=== PATIENT | female | born 1995 | race African-American/Black ===

== ENCOUNTER 2020-02-19 11:42 | Inpatient (IN) ==
[2020-02-19] MEDS ORDERED: ONDANSETRON 4 MG/2 ML VIAL IV PRN (15:33)
[2020-02-19] MEDS: LABETALOL 100 MG TABLET PO SCH (21:34)
[2020-02-20] MEDS ORDERED: LACTATED RINGERS 1,000 ML IV SCH ×2 (06:00→18:30)
[2020-02-20 06:18] LABS: Basophils % 0.3 % (0.0-0.8); Eosinophils % 0.5 % (0.00-10.9); Hematocrit 38.4 VOL% (35.7-47.0); Hemoglobin 12.9 GM/DL (12.0-16.0); Immature Granulocytes % 0.5 %; Immature Granulocytes Absolute 0.04 #; Lymphocytes # 1.9 10*3/uL (1.4-4.0); Lymphocytes % 25.9 % (21.3-54.2); Mean Corpuscular HGB Conc 33.6 GM/DL (32-36); Mean Corpuscular Volume 96.5 FL (87-102); Mean Platelet Volume 10.8 FL (9.6-12.0); Monocytes % 7.7 % (1.7-12.7); Neutrophils % 65.1 % (38.7-73.9); Platelet Count 161 T/CUMM (130-400); Red Blood Count 3.98 MC/CUMM (3.8-5.5); Red Cell Distribution Width 13.1 % (9.3-17.3); White Blood Count 7.4 T/CUMM (4-12)
[2020-02-20 06:34] LABS: INR 0.9; PT Patient Result 9.5 SECS (9.8-11.9); Partial Thromboplastin Time 28.9 SECS (23.9-33.8)
[2020-02-20 06:52] LABS: Albumin 2.7 G/DL (3.4-5.0); Bilirubin,Total 0.8 MG/DL (0.2-1.0); Calcium 8.8 MG/DL (8.5-10.1); Osmolality,Calculated 271.7 MOS/KG (273-304); Total Protein 6.4 G/DL (6.4-8.3); Uric Acid 4.2 MG/DL (2.6-6.0)
[2020-02-20] MEDS: LABETALOL 100 MG TABLET PO SCH (09:39)
[2020-02-20] MEDS ORDERED: FAMOTIDINE 20 MG/2 ML VIAL IV ONE (10:05)
[2020-02-20] MEDS ORDERED: ceFAZolin 2,000 MG in PREMIX 1 EACH IV ONE (10:05)
[2020-02-20] MEDS ORDERED: CITRIC ACID/SODIUM CITRATE 30 ML UDCUP PO ONE (10:05)
[2020-02-20] MEDS ORDERED: OXYTOCIN 10 UNIT/ML VIAL IM ONE (14:00)
[2020-02-20] MEDS ORDERED: OXYTOCIN/LR 30 UNIT/1,000 ML BAG IV ONE (14:00)
[2020-02-20] MEDS ORDERED: LACTATED RINGERS 1,000 ML IV ONE (14:00)
[2020-02-20] MEDS ORDERED: MORPHINE 10 MG/10 ML VIAL ONE (14:27)
[2020-02-20] MEDS ORDERED: BUPIVACAINE SPINAL 0.75% 2 ML AMP SPINAL ONE (14:27)
[2020-02-20] MEDS ORDERED: PHENYLEPHRINE 1 MG/10 ML SYRINGE IV ONE (14:29)
[2020-02-20] MEDS ORDERED: miSOPROStoL 200 MCG TABLET ONE (15:14)
[2020-02-20] MEDS ORDERED: CARBOPROST TROMETHAMINE 250 MCG/ML AMP IM ONE (15:14)
[2020-02-20] MEDS ORDERED: MIDAZOLAM 2 MG/2 ML VIAL ONE (16:58)
[2020-02-20] MEDS ORDERED: OXYTOCIN/LR 20 UNIT/1,000 ML BAG IV ONE ×3 (17:01→18:05)
[2020-02-20 17:37] LABS: Cord Arterial Blood HCO3 20.8 MMOL/L
[2020-02-20 17:40] LABS: Cord Venous Blood HCO3 22.3 MMOL/L; Cord Venous Blood PCO2 45.6 MMHG; Cord Venous Blood PO2 28.8
[2020-02-20 17:46] LABS: Apearance,Urine CLEAR (Clear); Bilirubin,Urine Negative (Negative); Blood, Urine Negative (Negative); Glucose,Urine (UA) Negative (Negative); Ketones,Urine Negative (Negative); Mucus,Urine Occasional /LPF (Occasional); Nitrite,Urine Negative (Negative); Protein,Urine 100 MG/DL; RBC,Urine <1 /HPF (0-4); Squamous Epithelial Cell,Urine Occasional /HPF (0-10); Urine Color Yellow (Yellow); Urine Specific Gravity 1.021 (1.001-1.035); WBC,Urine <1 /HPF (0-6)
[2020-02-20] MEDS ORDERED: ONDANSETRON 4 MG/2 ML VIAL IV PRN (18:05)
[2020-02-20] MEDS ORDERED: ACETAMINOPHEN 325 MG TABLET PO PRN (18:05)
[2020-02-20] MEDS ORDERED: RHO(D) IMMUNE GLOBULIN 300 MCG SYRINGE IM ONE (18:05)
[2020-02-20] MEDS ORDERED: SIMETHICONE CHEW 80 MG TABLET PO PRN (18:05)
[2020-02-20] MEDS ORDERED: MAGNESIUM HYDROXIDE SUSP 30 ML UDCUP PO PRN (18:05)
[2020-02-20] MEDS: KETOROLAC 30 MG/1 ML VIAL IV SCH (18:31)
[2020-02-20] MEDS: ACETAMINOPHEN 500 MG TABLET PO SCH (18:34)
[2020-02-20] MEDS ORDERED: diphenhydrAMINE 50 MG/1 ML VIAL IV PRN (19:39)
[2020-02-20] MEDS: DOCUSATE SODIUM 100 MG CAPSULE PO SCH (21:50)
[2020-02-21] MEDS: ceFAZolin 1,000 MG in SYRINGE 1 EACH IV SCH ×2 (00:29→07:18)
[2020-02-21] MEDS: ACETAMINOPHEN 500 MG TABLET PO SCH ×3 (00:29→16:03)
[2020-02-21] MEDS: KETOROLAC 30 MG/1 ML VIAL IV SCH ×3 (00:35→16:03)
[2020-02-21 00:48] LABS: Basophils % 0.1 % (0.0-0.8); Eosinophils % 0.1 % (0.00-10.9); Hematocrit 36.7 VOL% (35.7-47.0); Hemoglobin 12.3 GM/DL (12.0-16.0); Immature Granulocytes % 0.7 %; Immature Granulocytes Absolute 0.07 #; Lymphocytes # 1.3 10*3/uL (1.4-4.0); Lymphocytes % 13.6 % (21.3-54.2); Mean Corpuscular HGB Conc 33.5 GM/DL (32-36); Mean Corpuscular Volume 97.9 FL (87-102); Mean Platelet Volume 10.9 FL (9.6-12.0); Monocytes % 6.9 % (1.7-12.7); Neutrophils % 78.6 % (38.7-73.9); Platelet Count 156 T/CUMM (130-400); Red Blood Count 3.75 MC/CUMM (3.8-5.5); Red Cell Distribution Width 13.2 % (9.3-17.3); White Blood Count 9.8 T/CUMM (4-12)
[2020-02-21 08:45] LABS: Basophils % 0.1 % (0.0-0.8); Eosinophils % 0.2 % (0.00-10.9); Hematocrit 36.9 VOL% (35.7-47.0); Hemoglobin 12.5 GM/DL (12.0-16.0); Immature Granulocytes % 0.4 %; Immature Granulocytes Absolute 0.04 #; Lymphocytes # 1.1 10*3/uL (1.4-4.0); Lymphocytes % 10.9 % (21.3-54.2); Mean Corpuscular HGB Conc 33.9 GM/DL (32-36); Mean Corpuscular Volume 97.1 FL (87-102); Mean Platelet Volume 10.7 FL (9.6-12.0); Monocytes % 5.6 % (1.7-12.7); Neutrophils % 82.8 % (38.7-73.9); Platelet Count 147 T/CUMM (130-400); Red Cell Distribution Width 13.3 % (9.3-17.3); White Blood Count 9.9 T/CUMM (4-12)
[2020-02-21] MEDS: DOCUSATE SODIUM 100 MG CAPSULE PO SCH ×2 (08:56→23:12)
[2020-02-21] MEDS: METOCLOPRAMIDE 10 MG TABLET PO SCH ×3 (08:56→23:16)
[2020-02-21] MEDS: MULTIVITAMIN (PRENATAL) TABLET PO SCH (08:58)
[2020-02-21] MEDS: FUROSEMIDE 40 MG/4 ML VIAL IV SCH ×2 (14:06→20:39)
[2020-02-21] MEDS: IBUPROFEN 800 MG TABLET PO PRN ×2 (16:17→23:16)
[2020-02-21] MEDS ORDERED: FUROSEMIDE 40 MG/4 ML VIAL IV SCH (18:00)
[2020-02-22] MEDS: FUROSEMIDE 40 MG/4 ML VIAL IV SCH ×3 (06:18→11:41)
[2020-02-22] MEDS: IBUPROFEN 800 MG TABLET PO PRN ×2 (06:27→12:30)
[2020-02-22] MEDS: METOCLOPRAMIDE 10 MG TABLET PO SCH (08:51)
[2020-02-22] MEDS: MULTIVITAMIN (PRENATAL) TABLET PO SCH (08:52)
[2020-02-22] MEDS: DOCUSATE SODIUM 100 MG CAPSULE PO SCH (08:52)
[2020-02-22 10:33] VITALS: BP 132/79
== END 2020-02-22 12:45 | disposition home or self-care (01) | DRG 540 ==
LOC: N.LDOUT 11:42 → N.LD 13:57 → N.OB 02-20 22:59
PROVIDERS: ADMIT Obstetrics & Gynecology; ATTEND Obstetrics & Gynecology